=== PATIENT | male | born 1955 | race Caucasian/White ===

== ENCOUNTER 2016-06-11 09:42 | Emergency (ER) | payer OTHER ==
--- NOTE | 2016-06-11 10:13 | UC ---
Respiratory Complaint HPI - HPI Summary HPI Summary: COUGH X 2 WEEKS, + CHEST CONGESTION, PRODUCTIVE COUGH WITH YELLOW SPUTUM + FATIGUE, NO FEVER, + CHILLS - History of Current Complaint Chief Complaint: UCGeneralIllness Stated Complaint: CONGESTION Time Seen by Provider: 06/11/16 10:03 Hx Obtained From: Patient Onset/Duration: Gradual Onset, Lasting Weeks - 2, Still Present Timing: Constant Severity Initially: Moderate Severity Currently: Moderate Character: Sputum Description: - YELLOW Aggravating Factors: Exertion, Deep Breaths Alleviating Factors: Bronchodilator Associated Signs And Symptoms: Positive: Chills, Wheezing, URI, Nasal Congestion - Allergies/Home Medications Allergies/Adverse Reactions: Allergies Allergy/AdvReac Type Severity Reaction Status Date / Time No Known Allergies Allergy Verified 06/11/16 09:51 Home Medications: Home Medications Cholecalciferol TAB* [Vitamin D TAB*] 50,000 unit PO WEEKLY 06/11/16 [History Confirmed 06/11/16] Losartan TAB* [Cozaar TAB*] 25 mg PO DAILY 06/11/16 [History Confirmed 06/11/16] PMH/Surg Hx/FS Hx/Imm Hx Cardiovascular History Of: Reports: Hypertension Respiratory History Of: Reports: Asthma - Surgical History Surgical History: Yes Surgery Procedure, Year, and Place: L ankle - Family History Known Family History: Negative: Diabetes - Social History Alcohol Use: Occasionally Substance Use Type: None Smoking Status (MU): Never Smoked Tobacco Review of Systems Constitutional: Chills, Fatigue Skin: Negative Eyes: Negative ENT: Nasal Discharge Respiratory: Cough Cardiovascular: Negative Gastrointestinal: Negative Genitourinary: Negative Psychological: Negative All Other Systems Reviewed And Are Negative: Yes Physical Exam Triage Information Reviewed: Yes Appearance: Well-Appearing, No Pain Distress, Well-Nourished Vital Signs: Initial Vital Signs Temp 98.0 F 06/11/16 09:47 Pulse 58 06/11/16 09:47 Resp 18 06/11/16 09:47 BP 129/72 06/11/16 09:47 Pulse Ox 98 06/11/16 09:47 Vital Signs Reviewed: Yes Eyes: Positive: Conjunctiva Clear ENT: Positive: Normal ENT inspection, Hearing grossly normal, Pharynx normal Neck: Positive: Supple, Nontender, No Lymphadenopathy Respiratory: Positive: Chest non-tender, No respiratory distress, No accessory muscle use, Wheezing - DIFFUSE. Negative: Respiratory distress Cardiovascular: Positive: RRR, No Murmur, Pulses Normal Abdominal Exam: Normal Skin Exam: Normal UC Diagnostic Evaluation - Laboratory O2 Sat by Pulse Oximetry: 98 Respiratory Course/Dx - Differential Dx/Diagnosis Provider Diagnoses: BRONCHTIS Discharge - Discharge Plan Condition: Stable Disposition: HOME Prescriptions: Azithromycin TAB* [Zithromax TAB (Z-CHRISTINE) 250 mg #6 tabs] 2 tab PO .TODAY, THEN 1 DAILY #1 christine Patient Education Materials: Acute Bronchitis (ED) Referrals: [facility] [place] [facility] [Outside] - As Soon As Possible No Primary Care Phys,NOPCP [Primary Care Provider] -
== END 2016-06-11 10:13 | disposition home or self-care (01) ==
LOC: UCCORT 09:42
DX: J40 Bronchitis, not specified as acute or chronic (principal); J45.909 Unspecified asthma, uncomplicated; I10 Essential (primary) hypertension
CPT/HCPCS: 99202; G0463

== ENCOUNTER 2017-06-28 15:15 | Emergency (ER) | payer OTHER ==
[2017-06-28 16:47] VITALS: BP 181/97
[2017-06-28] MEDS ORDERED: Acetaminophen TAB* 325 MG PO ONE (17:48)
--- NOTE | 2017-06-28 17:48 | UC ---
Skin Complaint HPI - HPI Summary HPI Summary: scalp rash x 8 mos gradually worsening shelton told him about it - History of Current Complaint Chief Complaint: UCSkin Time Seen by Provider: 06/28/17 17:29 Stated Complaint: EYE IRRITATION Hx Obtained From: Patient Onset/Duration: Sudden Onset Timing: Constant Pain Intensity: 0 Pain Scale Used: 0-10 Numeric Location: Other - scalp Character: Raised Aggravating Factor(s): Nothing - Allergy/Home Medications Allergies/Adverse Reactions: Allergies Allergy/AdvReac Type Severity Reaction Status Date / Time sulfa Allergy Swelling Uncoded 06/28/17 16:33 Of Face,Lips,& Throat Review of Systems Constitutional: Negative Skin: Rash Eyes: Negative ENT: Negative Respiratory: Negative Cardiovascular: Negative Gastrointestinal: Negative Genitourinary: Negative Motor: Negative Neurovascular: Negative Musculoskeletal: Negative Neurological: Negative Psychological: Negative Is Patient Immunocompromised?: No All Other Systems Reviewed And Are Negative: Yes PMH/Surg Hx/FS Hx/Imm Hx Previously Healthy: Yes Endocrine History: Dyslipidemia Cardiovascular History: Hypertension - Surgical History Surgical History: Yes Surgery Procedure, Year, and Place: L ankle - Family History Known Family History: Positive: Hypertension Negative: Diabetes - Social History Alcohol Use: Occasionally Substance Use Type: Marijuana Substance Use Comment - Amount & Last Used: 06/27/17 Smoking Status (MU): Never Smoked Tobacco Physical Exam Triage Information Reviewed: Yes Appearance: Well-Appearing, No Pain Distress, Well-Nourished Vital Signs: Initial Vital Signs Temp 97.8 F 06/28/17 16:37 Pulse 55 06/28/17 16:37 Resp 22 06/28/17 16:37 BP 181/97 06/28/17 16:37 Pulse Ox 96 06/28/17 16:37 Vital Signs Reviewed: Yes Eyes: Positive: Conjunctiva Clear ENT: Positive: Hearing grossly normal. Negative: Trismus, Muffled voice, Hoarse voice Neck exam: Normal Respiratory: Positive: Lungs clear, Normal breath sounds, No respiratory distress, No accessory muscle use Cardiovascular: Positive: RRR, No Murmur Musculoskeletal: Positive: ROM Intact Neurological: Positive: Alert Psychological Exam: Normal Skin Exam: Other - three silver dollar sized anular lesions with Course/Dx - Diagnoses Provider Diagnoses: tinea capitus Discharge - Discharge Plan Condition: Stable Disposition: HOME Prescriptions: Griseofulvin, Microsize [Griseofulvin] 500 mg PO DAILY #28 tablet Patient Education Materials: Tinea Capitis (ED) Referrals: Kay Stearns PA [Primary Care Provider] - 2 Weeks
== END 2017-06-28 17:43 | disposition home or self-care (01) ==
LOC: UCCORT 15:15
DX: B35.0 Tinea barbae and tinea capitis (principal)
CPT/HCPCS: 99212; G0463

== ENCOUNTER 2017-10-27 15:49 | Emergency (ER) | payer OTHER ==
[2017-10-27 16:12] VITALS: BP 178/95
--- NOTE | 2017-10-27 16:12 | UC ---
Throat Pain/Nasal Siddharth HPI - HPI Summary HPI Summary: 61 yo male presents with sinus pain/pressure/congestion and productive cough getting progressively worse for the last 5 days. He has been taking mucinex, claritin, and using his at home albuterol inhaler with no relief. Denies fever, chills, SOB, chest pain, abdominal pain, n/v. - History of Current Complaint Chief Complaint: UCGeneralIllness Stated Complaint: SORE THROAT, CHEST CONGESTION Time Seen by Provider: 10/27/17 16:12 Hx Obtained From: Patient Onset/Duration: Gradual Onset Pain Intensity: 0 Cough: Productive - Allergies/Home Medications Allergies/Adverse Reactions: Allergies Allergy/AdvReac Type Severity Reaction Status Date / Time sulfa Allergy Swelling Uncoded 10/27/17 16:11 Of Face,Lips,& Throat Home Medications: Home Medications Aspirin EC TAB* [Ecotrin EC Low Dose 81 MG*] 81 mg PO DAILY 10/27/17 [History Confirmed 10/27/17] PMH/Surg Hx/FS Hx/Imm Hx - Additional Past Medical History Additional PMH: Gout Cardiovascular History: Hypertension - Surgical History Surgical History: Yes Surgery Procedure, Year, and Place: L ankle - Family History Known Family History: Positive: Hypertension Negative: Diabetes - Social History Lives: With Family Alcohol Use: Occasionally Substance Use Type: Marijuana Substance Use Comment - Amount & Last Used: 06/27/17 Smoking Status (MU): Never Smoked Tobacco Review of Systems Constitutional: Negative Skin: Negative Eyes: Negative ENT: Nasal Discharge, Sinus Congestion Respiratory: Cough Cardiovascular: Negative Gastrointestinal: Negative Neurovascular: Negative Neurological: Negative Psychological: Negative All Other Systems Reviewed And Are Negative: Yes Physical Exam - Summary Physical Exam Summary: GENERAL: NAD. WDWN. No pain distress. SKIN: No rashes, sores, lesions, or open wounds. HEENT: Head: AT/NC Eyes: Conjunctiva clear without inflammation or discharge. Ears: Hearing grossly normal. TMs intact, no bulging, erythema, or edema. Nose: Nasal mucosa pink and moist. NTTP maxillary and frontal sinus. Throat: Posterior oropharynx without exudates, erythema, or tonsillar enlargement. Uvula midline. NECK: Supple. Nontender. No lymphadenopathy. CHEST: CTAB. No r/r/w. No accessory muscle use. Breathing comfortably and in no distress. CV: RRR. Without m/r/g. Pulses intact. Brisk cap refill. NEURO: Alert. CN II-XII grossly intact. PSYCH: Age appropriate behavior. Triage Information Reviewed: Yes Vital Signs: Initial Vital Signs Temp 98.1 F 10/27/17 16:08 Pulse 57 10/27/17 16:08 Resp 18 10/27/17 16:08 BP 178/95 10/27/17 16:08 Pulse Ox 97 10/27/17 16:08 Throat Pain/Nasal Course/Dx - Course Course Of Treatment: Pt advised that his symptoms are likely viral and he should continue OTC management of his symptoms. His is very worried that his current "infection" will turn into pneumonia or bronchitis. I had a long discussion with them about overuse of antibiotics. In the end, pt agreed to have rx for antibiotic, but will hold off for a few more days to see if symptoms improve. - Differential Dx/Diagnosis Provider Diagnoses: Bronchitis Discharge - Sign-Out/Discharge Documenting (check all that apply): Discharge/Admit/Transfer - Discharge Plan Condition: Stable Disposition: HOME Prescriptions: Amoxicillin PO (*) [Amoxicillin 500 MG CAP*] 500 mg PO Q12H #14 cap Patient Education Materials: Acute Bronchitis (ED) Referrals: Kay Stearns PA [Primary Care Provider] - Additional Instructions: If you develop a fever, shortness of breath, chest pain, new or worsening symptoms - please call your PCP or go to the ED. Your blood pressure was high at todays visit. Please see your primary provider within 4 weeks for recheck and re-evaluation. - Billing Disposition and Condition Condition: STABLE Disposition: Home
== END 2017-10-27 16:28 | disposition home or self-care (01) ==
LOC: UCCORT 15:49
DX: J40 Bronchitis, not specified as acute or chronic (principal); Z88.2 Allergy status to sulfonamides; I10 Essential (primary) hypertension; Z79.82 Long term (current) use of aspirin
CPT/HCPCS: 99212; G0463